=== PATIENT | female | born 1995 | race Caucasian/White ===

== ENCOUNTER 2018-04-15 15:47 | Outpatient (CLI) | payer MEDICAID ==
[2018-04-15 16:21] LABS: AMORPHOUS SEDIMENT,URINE TRACE /HPF; APPEARANCE,URINE TURBID; BILIRUBIN,URINE NEGATIVE (NEGATIVE); COLOR,URINE AMBER; GLUCOSE, URINE NEGATIVE (NEGATIVE); KETONES,URINE NEGATIVE (NEGATIVE); LEUKOCYTE ESTERASE,URINE MODERATE (NEGATIVE); NITRITE,URINE NEGATIVE (NEGATIVE); PROTEIN,URINE 30 mg/dL (NEGATIVE); URINE SPECIFIC GRAVITY 1.021
[2018-04-15 16:39] LABS: URINE AMPHETAMINES SCREEN NEGATIVE; URINE BARBITURATES SCREEN NEGATIVE; URINE BENZODIAZEPINES SCREEN NEGATIVE; URINE COCAINE SCREEN NEGATIVE; URINE MARIJUANA (THC) SCREEN NEGATIVE; URINE METHADONE SCREEN NEGATIVE; URINE PHENCYCLIDINE SCREEN NEGATIVE
[2018-04-15 16:44] LABS: UR PRO/CREAT RATIO RESULT 0.1 mg/mg (0.0-0.2); URINE PROTEIN 14.7 mg/dL (<12)
[2018-04-15] MEDS ORDERED: BUTALB/ACETAMINOPHEN/CAFFEINE 1 TAB EACH PO ONE (16:54)
[2018-04-15] MEDS ORDERED: BUTALB/ACETAMINOPHEN/CAFFEINE 1 TAB EACH PO PRN (16:54)
[2018-04-15] MEDS ORDERED: BUTALB/ACETAMINOPHEN/CAFFEINE 1 TAB EACH ONE (17:11)
[2018-04-15 17:36] LABS: ABSOLUTE BASOPHILS # (AUTO) 0.2 10^3/uL (0.0-0.2); ABSOLUTE EOSINOPHILS # (AUTO) 0.1 10^3/uL (0.0-0.6); ABSOLUTE LYMPHOCYTES (AUTO) 1.9 10^3/uL (0.5-4.7); ABSOLUTE MONOCYTES (AUTO) 1.1 10^3/uL (0.1-1.4); BASOPHILS % (AUTO) 1.4 % (0-2); EOSINOPHILS % (AUTO) 0.4 % (0-6); HEMATOCRIT 33.9 % (36.0-47.0); HEMOGLOBIN 11.4 g/dL (12.0-15.5); LYMPHOCYTES % (AUTO) 12.7 % (13-45); MEAN CORPUSCULAR HEMOGLOBIN 28.9 pg (27.0-33.4); MEAN CORPUSCULAR HGB CONC 33.6 g/dL (32.0-36.0); MEAN CORPUSCULAR VOLUME 86 fl (80-97); MONOCYTES % (AUTO) 7.2 % (3-13); PLATELET COUNT 223 10^3/uL (150-450); RED BLOOD COUNT 3.94 10^6/uL (3.72-5.28); RED CELL DISTRIBUTION WIDTH 13.8 % (11.5-14.0); SEGMENTED NEUTROPHILS % (AUTO) 78.3 % (42-78); TOTAL CELLS COUNTED % (AUTO) 100 %; WHITE BLOOD COUNT 15.3 10^3/uL (4.0-10.5)
[2018-04-15 18:00] LABS: ALANINE AMINOTRANSFERASE 27 U/L (9-52); ALBUMIN 3.6 g/dL (3.5-5.0); ALKALINE PHOSPHATASE 140 U/L (38-126); ANION GAP 12 (5-19); ASPARTATE AMINO TRANSFERASE 19 U/L (14-36); BILIRUBIN,DIRECT 0.3 mg/dL (0.0-0.4); BILIRUBIN,TOTAL 0.4 mg/dL (0.2-1.3); BLOOD UREA NITROGEN 9 mg/dL (7-20); CALCIUM 10.3 mg/dL (8.4-10.2); CARBON DIOXIDE 24 mmol/L (22-30); CHLORIDE 104 mmol/L (98-107); GLUCOSE 84 mg/dL (75-110); POTASSIUM 4.6 mmol/L (3.6-5.0); SODIUM 139.8 mmol/L (137-145); URIC ACID 4.1 mg/dL (2.5-6.2)
--- NOTE | 2018-04-15 20:40 | RADIOLOGY REPORT (SQ) ---
EXAM DESCRIPTION: VENOUS UNILATERAL LOWER COMPLETED DATE/TIME: 04/15/2018 8:30 pm REASON FOR STUDY: RLE EDEMA COMPARISON: None. TECHNIQUE: Dynamic and static poole scale and color images acquired of the right leg venous system. S elected spectral images acquired with additional compression and augmentation maneuvers. The contrala teral common femoral vein and saphenofemoral junction were also imaged. Images stored on PACS. LIMITATIONS: None. FINDINGS: COMMON FEMORAL: Normal phasicity, compression and augmentation. No visualized echogenic ma terial on poole scale. No defects on color images. FEMORAL: Normal compression and augmentation. No visualized echogenic material on poole scale. No defe cts on color images. POPLITEAL: Normal compression, augmentation. No visualized echogenic material on poole scale. No defec ts on color images. CALF VESSELS: Normal compression, augmentation. No visualized echogenic material on poole scale. No de fects on color images. GSV and SSV: Normal compression, augmentation. No visualized echogenic material on poole scale. No def ects on color images. ANY DEEP VENOUS INSUFFICIENCY: Not evaluated. ANY EVIDENCE OF POPLITEAL CYST: No. OTHER: No other significant finding. CONTRALATERAL COMMON FEMORAL VEIN AND SAPHENOFEMORAL JUNCTION: Normal phasicity, compression and augmentation. No visualized echogenic material on poole scale. No de fects on color images. IMPRESSION: NO EVIDENCE OF DVT OR SVT IN THE RIGHT LEG. TECHNICAL DOCUMENTATION: JOB ID: [id number] [email or web address] Rights Reserved Reading location - IP/workstation name: [email or web address]
--- NOTE | 2018-04-15 21:11 | Non Stress Test Report ---
Non Stress Test Datetime Report Generated by CPN: 04/15/2018 21:11 DEMOGRAPHIC Test Number: 1 EGA NST: 35.0 INDICATION Indication for Study: Other Indication for Study (NST) Other: LABOR CHECK VITAL SIGNS Temperature - NST: 98.1 Pulse - NST: 88 RESP - NST: 18 NBPSYS NST: 130 NBPDIA NST: 71 MONITORING Monitor Explained: Monitor Explained; Test Explained; Patient Verbalized Understanding Time on Monitor: 04/15/2018 16:09 Time off Monitor: 04/15/2018 19:49 NST Duration: 220 NST INTERVENTIONS NST Interventions: PO Hydration; Reposition Patient Physician Notified NST: dr rick BABY A: [id number] BABY A Movement : Present Contraction Frequency : IRREG FHR Baseline : 130 Accelerations : 15X15 Decelerations : None Variability : Moderate 6-25bpm NST Review: Meets Criteria for Reactive NST NST Review and Verified By : KP Linares NST Results: Reactive NST REPORT Report Trigger: Send Report
== END 2018-04-15 21:03 | disposition home or self-care (01) ==
LOC: LC 15:47
PROVIDERS: ATTEND Student in an Organized Health Care Education/Training Program
PROC: 4A1HXCZ Monitoring of Products of Conception, Cardiac Rate, External Approach (ICD-10-PCS; principal; 2018-04-15)
DX: O12.03 Gestational edema, third trimester (principal); Z3A.35 35 weeks gestation of pregnancy
CPT/HCPCS: 59025; 36415; 83615; 84156; 84550; 82570; 85025; 80053; 81001; 80307; 93971; J3490

== ENCOUNTER 2018-05-13 02:20 | Inpatient (IN) | payer MEDICAID ==
[2018-05-13] MEDS ORDERED: RINGERS SOLUTION,LACTATED 1,000 ML IV ONE (02:36)
[2018-05-13] MEDS ORDERED: RINGERS SOLUTION,LACTATED 1,000 ML IV PRN (02:36)
[2018-05-13 03:08] LABS: ABSOLUTE BASOPHILS # (AUTO) 0.1 10^3/uL (0.0-0.2); ABSOLUTE EOSINOPHILS # (AUTO) 0.1 10^3/uL (0.0-0.6); ABSOLUTE LYMPHOCYTES (AUTO) 2.8 10^3/uL (0.5-4.7); ABSOLUTE MONOCYTES (AUTO) 0.9 10^3/uL (0.1-1.4); ABSOLUTE NEUT (AUTO) 11.5 10^3/uL (1.7-8.2); BASOPHILS % (AUTO) 0.9 % (0-2); EOSINOPHILS % (AUTO) 0.8 % (0-6); HEMATOCRIT 33.2 % (36.0-47.0); HEMOGLOBIN 10.9 g/dL (12.0-15.5); LYMPHOCYTES % (AUTO) 18.1 % (13-45); MEAN CORPUSCULAR HEMOGLOBIN 27.5 pg (27.0-33.4); MEAN CORPUSCULAR VOLUME 83 fl (80-97); PLATELET COUNT 191 10^3/uL (150-450); RED BLOOD COUNT 3.99 10^6/uL (3.72-5.28); RED CELL DISTRIBUTION WIDTH 14.1 % (11.5-14.0); SEGMENTED NEUTROPHILS % (AUTO) 74.2 % (42-78); TOTAL CELLS COUNTED % (AUTO) 100 %; WHITE BLOOD COUNT 15.6 10^3/uL (4.0-10.5)
[2018-05-13] MEDS ORDERED: MISOPROSTOL 0.1 MG TABLET PO ONE ×2 (03:39→04:30)
[2018-05-13 04:11] LABS: APPEARANCE,URINE CLOUDY; BILIRUBIN,URINE NEGATIVE (NEGATIVE); COLOR,URINE STRAW; GLUCOSE, URINE NEGATIVE (NEGATIVE); KETONES,URINE NEGATIVE (NEGATIVE); URINE SPECIFIC GRAVITY 1.007
[2018-05-13 04:12] LABS: LEUKOCYTE ESTERASE,URINE TRACE (NEGATIVE); NITRITE,URINE NEGATIVE (NEGATIVE); PROTEIN,URINE 100 mg/dL (NEGATIVE); UROBILINOGEN,URINE NEGATIVE mg/dL (<2.0)
[2018-05-13] MEDS ORDERED: MISOPROSTOL 0.1 MG TABLET ONE (04:25)
[2018-05-13 04:36] LABS: URINE AMPHETAMINES SCREEN NEGATIVE; URINE BARBITURATES SCREEN NEGATIVE; URINE BENZODIAZEPINES SCREEN NEGATIVE; URINE COCAINE SCREEN NEGATIVE; URINE MARIJUANA (THC) SCREEN NEGATIVE; URINE METHADONE SCREEN NEGATIVE
[2018-05-13 04:41] LABS: URINE PHENCYCLIDINE SCREEN NEGATIVE
[2018-05-13] MEDS ORDERED: OXYTOCIN 10 UNIT/ML VIAL ONE (10:04)
[2018-05-13] MEDS ORDERED: MISOPROSTOL 0.2 MG TABLET ONE (10:04)
[2018-05-13] MEDS ORDERED: LIDOCAINE 1% INJ-PF (10 MG/ML) 30 ML SDV ONE (10:04)
[2018-05-13] MEDS ORDERED: OXYTOCIN/NORMAL SALINE 20 UNIT/1,000 ML RTUINJ ONE (10:05)
--- NOTE | 2018-05-13 11:21 | L&D Progress Notes ---
PROGRESS NOTES Datetime Report Generated by CPN: 05/13/2018 11:20 PROGRESS NOTE Impression: Reassuring Heart Rate Plan: Continue Present Management; Induction Vital Signs : Reviewed Comment: Irregular uc's, mod variability, occas variable VAGINAL EXAM Dilatation: 1 Effacement: 50 Station: -3 MEMBRANES Pooling: Positive Membranes: Ruptured Amniotic Fluid Color: Clear FETUS A Monitoring: External US Decelerations: Variable : 39.0 Estimated Weight (gm): 3500 Presentation: Vertex SIGNATURE SIGNATURE: ,[id number];,[id number] SIGNATURE: ,[id number];,[id number] SIGNATURE: ,[id number] SIGNATURE: [id number] Assignment: Lyn Wood MD Signature: with User ID: [email or web address] : with User ID: [email or web address]
[2018-05-13] MEDS ORDERED: PHENYLEPHRINE HCL INJ/PF 10 MG/1 ML SDV ONE (12:09)
[2018-05-13] MEDS ORDERED: FENTANYL CITRATE INJ/PF 100 MCG/2 ML AMPUL ONE (12:09)
[2018-05-13] MEDS ORDERED: EPHEDRINE SULFATE INJ 50 MG/1 ML AMPULE ONE ×2 (12:10)
[2018-05-13] MEDS ORDERED: FENTANYL/BUPIVACAINE/NS/PF 300 MCG/150 ML RTUINJ EPI ONE (12:11)
--- NOTE | 2018-05-13 12:19 | L&D Progress Notes ---
PROGRESS NOTES Datetime Report Generated by CPN: 05/13/2018 12:19 PROGRESS NOTE Impression: Reassuring Heart Rate Plan: Continue Present Management Comment: screaming with epidural, in process of receiving epidural, moderate variability, early and variable decelerations, uc's q 2-3 min, stron FETUS C SIGNATURE: [id number];[id number];[id number] Assignment: Lyn Wood MD Signature: with User ID: [email or web address] : with User ID: [email or web address]
[2018-05-13] MEDS ORDERED: PSEUDOEPHEDRINE HCL 30 MG TABLET PO PRN (13:53)
[2018-05-13] MEDS ORDERED: DIPHENHYDRAMINE HCL 25 MG CAPSULE PO PRN (13:53)
[2018-05-13] MEDS ORDERED: PROMETHAZINE HCL 25 MG SUPP.RECT PR PRN (13:53)
[2018-05-13] MEDS ORDERED: ACETAMINOPHEN WITH CODEINE #3 TABLET PO PRN ×2 (13:53)
[2018-05-13] MEDS ORDERED: DIBUCAINE 1% OINTMENT 28 GM TP PRN (13:53)
[2018-05-13] MEDS ORDERED: NA PHOS,M-B/NA PHOS,DI-BA (ADULT) 133 ML ENEMA PR PRN (13:53)
[2018-05-13] MEDS ORDERED: GLYCERIN/WITCH HAZEL LEAF 1 EACH MED..PAD TP PRN (13:53)
[2018-05-13] MEDS ORDERED: OXYTOCIN/NORMAL SALINE 20 UNIT/1,000 ML RTUINJ IV PRN (13:53)
[2018-05-13] MEDS ORDERED: ACETAMINOPHEN 650 MG SUPP.RECT PR PRN (13:53)
[2018-05-13] MEDS ORDERED: MEASLES,MUMPS&RUBELLA VACC/PF 0.5 ML VIAL SUBCUT PRN (13:53)
[2018-05-13] MEDS ORDERED: DIPH/PERTUSS(ACELL)/TETANUS VAC/PF 0.5 ML SYR (>=10YO) IM PRN (13:53)
[2018-05-13] MEDS ORDERED: MAGNESIUM HYDROXIDE SUSP 30 ML UDCUP PO PRN (13:53)
[2018-05-13] MEDS ORDERED: BENZOCAINE/MENTHOL AEROSOL SPRAY 56 ML TOP PRN (13:53)
[2018-05-13] MEDS ORDERED: PROMETHAZINE HCL INJ 25 MG/1 ML VIAL IV PRN (13:53)
[2018-05-13] MEDS ORDERED: PROMETHAZINE HCL 25 MG TABLET PO PRN (13:53)
--- NOTE | 2018-05-13 15:11 | Warning Signs in Babies ---
VOD Warning Signs Datetime Report Generated by [facility]: 05/13/2018 15:11 VOD#608 -Warning Signs in Babies: Viewed with Parent(s)/Family (04/15/2018 16:23:Paul Estes RN)
[2018-05-13] MEDS: IBUPROFEN 800 MG TABLET PO SCH ×2 (17:19→22:34)
[2018-05-13] MEDS: DOCUSATE SODIUM 100 MG CAPSULE PO SCH (18:28)
[2018-05-13] MEDS: FERROUS SULFATE 325 MG TABLET PO SCH (18:28)
[2018-05-13] MEDS: FAMOTIDINE 20 MG TABLET PO SCH (22:34)
[2018-05-14] MEDS: IBUPROFEN 800 MG TABLET PO SCH ×3 (06:47→22:18)
[2018-05-14 07:08] LABS: HEMATOCRIT 28.4 % (36.0-47.0); HEMOGLOBIN 9.6 g/dL (12.0-15.5); MEAN CORPUSCULAR HEMOGLOBIN 28.2 pg (27.0-33.4); MEAN CORPUSCULAR HGB CONC 33.8 g/dL (32.0-36.0); MEAN CORPUSCULAR VOLUME 84 fl (80-97); PLATELET COUNT 136 10^3/uL (150-450); RED CELL DISTRIBUTION WIDTH 14.2 % (11.5-14.0); WHITE BLOOD COUNT 14.1 10^3/uL (4.0-10.5)
[2018-05-14] MEDS: FERROUS SULFATE 325 MG TABLET PO SCH ×2 (09:44→18:31)
[2018-05-14] MEDS: SENNOSIDES/DOCUSATE 8.6-50 MG 1 EACH TABLET PO SCH (09:44)
[2018-05-14] MEDS: FAMOTIDINE 20 MG TABLET PO SCH ×2 (09:44→22:18)
[2018-05-14] MEDS: PRENATAL VITAMIN W DHA CAPSULE PO SCH (09:44)
[2018-05-14] MEDS: DOCUSATE SODIUM 100 MG CAPSULE PO SCH ×2 (09:44→18:36)
[2018-05-14] MEDS ORDERED: RINGERS SOLUTION,LACTATED 1,000 ML IV PRN (11:34)
[2018-05-14] MEDS ORDERED: OXYTOCIN/NORMAL SALINE 20 UNIT/1,000 ML RTUINJ IV PRN (11:34)
[2018-05-14] MEDS ORDERED: RINGERS SOLUTION,LACTATED 300 ML IV ONE (11:34)
--- NOTE | 2018-05-14 11:52 | PDOC PROGRESS REPORT ---
Subjective-OB Progress Note for:: 05/14/18 Subjective: 22yo G1 now P1 s/p ppd1. Ambulating, voiding and without difficulty. Denies concerns at this time. Physical Exam (OB) Vital Signs: Temp Pulse Resp BP Pulse Ox 98.1 F 86 16 131/64 H 99 05/14/18 08:07 05/14/18 08:07 05/14/18 08:07 05/14/18 08:07 05/14/18 08:07 Intake & Output 05/13/18 05/14/18 05/15/18 06:59 06:59 06:59 Intake Total 600 Balance 600 Weight 82.7 kg - General General Appearance: Appears well In distress: None - PIH/Pre-Eclampsia Headache: Absent Epigastric Pain: No Visual Changes: No - Episiotomy/Laceration Site Condition: Well Approximated - Lochia Lochia Amount: Small 10-25 ml Lochia Color: Rubra/Red - Abdomen Description: Soft, Round Hernia Present: No Fundal Description: Firm, Midline Fundal Height: u/u - u/2 - Respiratory Respiratory Status: No respiratory distress - Extremities Upper extremity: Normal inspection Lower extremities: Normal inspection - Neurological Cognition: Normal Orientation: AAOx4 - Psychological Associated symptoms: Normal affect, Normal mood Objective-Diagnostic Laboratory: 05/14/18 06:40 05/14/18 06:40 WBC 14.1 H RBC 3.40 L Hgb 9.6 L Hct 28.4 L MCV 84 MCH 28.2 MCHC 33.8 RDW 14.2 H Plt Count 136 L Assessment and Plan(PN) - Assessment and Plan (1) Acute blood loss anemia Is this a current diagnosis for this admission?: Yes Plan: increase dietary iron and feso4 BID (2) Anemia complicating , third trimester Is this a current diagnosis for this admission?: Yes Plan: increase dietary iron and feso4 BID (3) Labial abrasion, delivered, current hospitalization Is this a current diagnosis for this admission?: Yes Plan: routine pp care. Monitor for s/s of infection (4) Normal vaginal delivery Is this a current diagnosis for this admission?: Yes Plan: routine pp care - Time Spent with Patient Time with patient: Less than 15 minutes Medications reviewed and adjusted accordingly: Yes - Disposition Anticipated Discharge: Home Within: within 24 hours
[2018-05-15] MEDS: IBUPROFEN 800 MG TABLET PO SCH ×2 (06:57→14:34)
[2018-05-15 07:48] VITALS: BP 135/67
--- NOTE | 2018-05-15 08:44 | PDOC PROGRESS REPORT ---
Subjective-OB Progress Note for:: 05/15/18 Subjective: Ready for discharge. Physical Exam (OB) Vital Signs: Temp Pulse Resp BP Pulse Ox 98.1 F 80 12 135/67 H 99 05/15/18 07:35 05/15/18 07:35 05/15/18 07:35 05/15/18 07:35 05/15/18 07:35 Intake & Output 05/14/18 05/15/18 05/16/18 06:59 06:59 06:59 Intake Total 600 400 Balance 600 400 - PIH/Pre-Eclampsia DTR's: 1 + Clonus: Negative Headache: Absent Epigastric Pain: No Visual Changes: No - Lochia Lochia Amount: Scant < 10 ml Lochia Color: Rubra/Red - Abdomen Description: Tender, Soft Hernia Present: No Bowel Sounds: Normoactive Flatus Presence: Present Stool: Yes Fundal Description: Firm, Midline Fundal Height: u/u - u/2 Objective-Diagnostic Laboratory: 05/14/18 06:40 Assessment and Plan(PN) - Time Spent with Patient Medications reviewed and adjusted accordingly: Yes - Disposition Anticipated Discharge: Home
--- NOTE | 2018-05-15 08:53 | PDOC DISCHARGE SUMMARY ---
Final Diagnosis Discharge Date: 05/15/18 - Final Diagnosis (1) Acute blood loss anemia Is this a current diagnosis for this admission?: Yes (2) Anemia complicating , third trimester Is this a current diagnosis for this admission?: Yes (3) Labial abrasion, delivered, current hospitalization Is this a current diagnosis for this admission?: Yes (4) Normal vaginal delivery Is this a current diagnosis for this admission?: Yes (5) Premature rupture of membranes Is this a current diagnosis for this admission?: Yes Discharge Data - Discharge Medication Prescriptions: Ferrous Sulfate [Feosol 325 mg Tablet] 325 mg PO BID #60 tablet Home Medications: Ferrous Sulfate [Feosol 325 mg Tablet] 325 mg PO BID #60 tablet 05/15/18 Gestational Age: 39 wks Reason(s) for Admission: PROM Procedures: Ultrasound Intrapartum Procedure(s): Spontaneous Vaginal Delivery Complication(s): Laceration-Perineal - Data Baby 1 Male at 1 minute: 8 at 5 minutes: 9 Weight: 3.033 kg Home with Mother: Yes Complications: No - Diagnosis Test Laboratory: Temp Pulse Resp BP Pulse Ox 98.1 F 80 12 135/67 H 99 05/15/18 07:35 05/15/18 07:35 05/15/18 07:35 05/15/18 07:35 05/15/18 07:35 05/13/18 05/13/18 05/14/18 02:45 02:51 06:40 RBC 3.99 3.40 L Hgb 10.9 L 9.6 L Hct 33.2 L 28.4 L Urine Opiates Screen NEGATIVE - Discharge information/Instructions Discharge Activity: Activity As Tolerated, Balance Activity w/Rest, Pelvic Rest , Slowly Increase Activity, No tub bath Discharge Diet: Regular Disposition: HOME, SELF-CARE Follow up with: [facility] in: 4, Weeks
[2018-05-15] MEDS ORDERED: MEASLES,MUMPS&RUBELLA VACC/PF 0.5 ML VIAL SUBCUT PRN (09:30)
[2018-05-15] MEDS ORDERED: PROMETHAZINE HCL INJ 25 MG/1 ML VIAL IV PRN (09:30)
[2018-05-15] MEDS ORDERED: DIPH/PERTUSS(ACELL)/TETANUS VAC/PF 0.5 ML SYR (>=10YO) IM PRN (09:30)
[2018-05-15] MEDS: PRENATAL VITAMIN W DHA CAPSULE PO SCH (10:01)
[2018-05-15] MEDS: FAMOTIDINE 20 MG TABLET PO SCH (10:02)
[2018-05-15] MEDS: FERROUS SULFATE 325 MG TABLET PO SCH (10:02)
[2018-05-15] MEDS: DOCUSATE SODIUM 100 MG CAPSULE PO SCH (10:02)
[2018-05-15] MEDS: SENNOSIDES/DOCUSATE 8.6-50 MG 1 EACH TABLET PO SCH (10:02)
--- NOTE | 2018-05-20 16:28 | Delivery Summary ---
Del Sum A-C Datetime Report Generated by CPN: 05/20/2018 16:28 DELIVERY PERSONNEL DELIVERY PERSONNEL: [id number] Delivery Doctor:: Lianne Collins CNM Labor and Delivery Nurse:: Paul Estes RN Nursery Nurse:: Casandra Kumar RN Nursery Nurse:: Amber Taylor RN Hand Twister/CLINICAL APPEALS RN: Celina Kowalski, CLINICAL APPEALS RN II MATERNAL INFORMATION Delivery Anesthesia: Epidural Medications After Delivery: Pitocin Bolus-Please Comment Meds After Delivery Comment: 20units in 1000ML NS Maternal Complications: None Provider Comments: Spont delivery of viable male from OA to JOSE LUIS over intact perineum, rt periurethral abrasion, no sutures needed. Spont del of grossly nl intact placenta, 3 VC, FFFM, baby and mom remains in recovery in stable condition (Annotations: Data stored by N on behalf of user) LABOR SUMMARY EDC: 05/20/2018 00:00 No. Babies in Womb: 1 Attempted: No Labor Anesthesia: Epidural LABOR INFORMATION Onset of Labor: 05/13/2018 09:45 Complete Dilatation: 05/13/2018 13:15 Cervical Ripening Agents: Cytotec @ Oxytocin: Augmentation Group B Beta Strep: negative Antibiotics # of Doses: 0 Antibiotics Time of Last Dose: N/A Name of Antibiotic Given: N/A Steroids Given: None Reason Steroids Not Administered: Not Applicable MEMBRANES Membranes Rupture Method: Spontaneous Rupture of Membranes: 05/13/2018 01:30 Length of Rupture (hr): 12.08 Amniotic Fluid Color: Clear Amniotic Fluid Amount: Small Amniotic Fluid Odor: Normal STAGES OF LABOR Stage 1 hr: 3 Stage 1 min: 30 Stage 2 hr: 0 Stage 2 min: 20 Stage 3 hr: 0 Stage 3 min: 4 Total Time in Labor hr: 3 Total Time in Labor min: 54 VAGINAL DELIVERY Episiotomy: None Laceration #1: Perineal Laceration Extension #1: N/A Laceration Repair: Not Applicable Laceration Repair: Not Applicable Sponge Count Correct: N/A Sponge Count Correct: N/A CSECTION DELIVERY Primary Indication: N/A Secondary Indication: N/A CSection Incidence: N/A Labor: N/A Elective: N/A CSection Incision: N/A BABY A INFORMATION Infant Delivery Date/Time: 05/13/2018 13:35 Method of Delivery: Vaginal Born in Route : No : N/A Forceps: N/A Vacuum Extraction: N/A Shoulder Dystocia : No PRESENTATION/POSITION BABY A Presentation: Cephalic Presentation: Unable to Assess Cephalic Presentation: Vertex Vertex Position: Right Occipital Anterior Breech Presentation: N/A PLACENTA INFORMATION BABY A Placenta Delivery Time : 05/13/2018 13:39 Placenta Method of Delivery: Spontaneous Placenta Status: Delivered SCORES BABY A Heart Rate 1 min: >100 bpm Resp Effort 1 min: Good Cry Reflex Irritability 1 min: Cough or Sneeze or Pulls Away Muscle Tone 1 min: Active Motion Color 1 min: Blue/Pale Resuscitation Effort 1 min: N/A SCORE 1 MIN: 8 Heart Rate 5 min: >100 bpm Resp Effort 5 min: Good Cry Reflex Irritability 5 min: Cough or Sneeze or Pulls Away Muscle Tone 5 min: Active Motion Color 5 min: Body [place], Extremities Blue SCORE 5 MIN: 9 INFORMATION BABY A Gestational Age at Delivery: 39.0 Gestational Status: Full Term- 39- 40.6 Weeks Outcome : Liveborn Condition : Stable Infant Sex: Male IDENTIFICATION BABY A Verification Date/Time: 05/13/2018 14:15 ID Band Number: [id number] Mother's Name Verified: Yes Infant RN Verifying Infant: Francis Estes RN Additional Verifying Personnel: RTisha Kumar RN WEIGHT/LENGTH BABY A Birthweight (gm): 3040 Infant Weight (lb): 6 Weight (oz): 11 Length (in): 19.50 Length (cm): 49.53 CORD INFORMATION BABY A No. Cord Vessels: 3 Nuchal Cord : N/A Cord Blood Taken: Yes-For Storage (Mom's Blood type +) Suction: None ASSESSMENT BABY A Infant Complications: None Physical Findings at Delivery: Within Normal Limits Physical Findings- Other: See full nursery assessment Infant Respirations: Appears Normal Skin to Skin: Yes Skin to Skin Time (min): 60 Graphic Design Assistant/ALS Called : No Infant Care By: Lee Kumar RN Transferred To: Remains with Mother
== END 2018-05-15 17:30 | disposition home or self-care (01) | DRG 775 ==
LOC: LC 02:20 → LR 02:31 → 2S 16:18
PROVIDERS: ADMIT Obstetrics & Gynecology; ATTEND Obstetrics & Gynecology
PROC: 10E0XZZ Delivery of Products of Conception, External Approach (ICD-10-PCS; principal; 2018-05-13)
DX: O99.334 Smoking (tobacco) complicating childbirth (principal); F17.210 Nicotine dependence, cigarettes, uncomplicated; Z3A.39 39 weeks gestation of pregnancy; Z37.0 Single live birth
CPT/HCPCS: 36415; 80307; 81005; 85025; 85027; 86592; 86850; 86900; 86901; 94760; J2370; J2590; J3010; J3490

== ENCOUNTER 2019-01-06 13:28 | Emergency (ER) | payer SELFPAY ==
--- NOTE | 2019-01-06 14:03 | ER Document Report ---
HPI - HPI Time Seen by Provider: 01/06/19 13:47 Pain Level: 2 Context: Patient is a 23-year-old female who presents emergency department with a chief complaint of an insect bite to her right medial anterior thigh. She states that she felt a bug bite her last night. She has not taken any Benadryl or any medications to help with the pain. The patient did notice some bruising to the area and states that the pain radiates down her leg. Denies any fever, redness, or any other symptoms at this time. - CONSTITUTIONAL Constitutional: DENIES: Fever, Chills - EENT EENT: DENIES: Sore Throat, Ear Pain - NEURO Neurology: DENIES: Headache - CARDIOVASCULAR Cardiovascular: DENIES: Chest pain - RESPIRATORY Respiratory: DENIES: Trouble Breathing, Coughing - GASTROINTESTINAL Gastrointestinal: DENIES: Abdominal Pain, Nausea, Patient vomiting, Diarrhea - REPRODUCTIVE Reproductive: DENIES: : - MUSCULOSKELETAL Musculoskeletal: REPORTS: Extremity pain - Right anterior medial thigh. DENIES: Back Pain, Neck Pain, Swelling - DERM Skin Problems: Bruise - Right anterior medial thigh Past Medical History - General Information source: Patient - Social History Smoking Status: Current Every Day Smoker Family History: Reviewed & Not Pertinent Vertical Provider Document - CONSTITUTIONAL Agree With Documented VS: Yes Exam Limitations: No Limitations General Appearance: No Apparent Distress - INFECTION CONTROL TRAVEL OUTSIDE OF THE [place] IN LAST 30 DAYS: No - HEENT HEENT: Atraumatic, Normocephalic, PERRLA - NECK Neck: Normal Inspection - RESPIRATORY Respiratory: Breath Sounds Normal, No Respiratory Distress - CARDIOVASCULAR Cardiovascular: Regular Rate, Regular Rhythm Pulses: Normal: Radial - MUSCULOSKELETAL/EXTREMETIES Musculoskeletal/Extremeties: FROM, Tender - Anterior medial thigh, No Edema, Eccymosis - Anterior medial thigh about 2 cm - NEURO Level of Consciousness: Awake, Alert, Appropriate Motor/Sensory: No Motor Deficit, No Sensory Deficit - DERM Integumentary: Warm, Dry, No Rash Course - Re-evaluation Re-evalutation: 01/06/19 Patient does have bruising to the area in which she states that she was bit by a bug. I do not appreciate any erythema at this time. There is some ecchymosis to the area. I do not suspect patient has any life-threatening etiology at this time. I do not appreciate any cellulitis on them. She will receive a dose of Benadryl here in the emergency department. I also have advised her that she needs to continue to take Benadryl to help with any inflammation or itchiness. I have also advised her to take ibuprofen and Tylenol for her pain. She is in agreement with this plan. She will follow-up with her primary care provider in regards to this visit. I do not suspect the patient has a tick bite, as there is no bull's-eye rash noted. Verbal discharge instructions were given to the lizabeth velez. They verbalized understanding. They are stable for discharge. Discharge - Discharge Clinical Impression: Insect bite Qualifiers: Encounter type: initial encounter Site of insect bite: thigh Laterality: right Qualified Code(s): S70.361A - Insect bite (nonvenomous), right thigh, initial encounter Condition: Stable Disposition: HOME, SELF-CARE Additional Instructions: You were seen today in the emergency department for an insect bite to your right thigh. You can take Benadryl 50 mg every 6 hours for itchiness or swelling. You can also take Tylenol 1000 mg or ibuprofen 600 mg every 6 hours for your pain. If you see redness that starts to spread, please return to the emergency department. Prescriptions: Diphenhydramine HCl [Benadryl] 50 mg PO Q6HP PRN #30 capsule PRN Reason:
[2019-01-06] MEDS ORDERED: DIPHENHYDRAMINE HCL 50 MG CAPSULE PO ONE (14:04)
[2019-01-06 14:08] VITALS: BP 115/61
== END 2019-01-06 14:22 | disposition home or self-care (01) ==
LOC: ER 13:28
DX: S70.361A Insect bite (nonvenomous), right thigh, initial encounter (principal); W57.XXXA Bitten or stung by nonvenomous insect and other nonvenomous arthropods, initial encounter; F17.200 Nicotine dependence, unspecified, uncomplicated
CPT/HCPCS: 99281

== ENCOUNTER 2019-04-06 17:06 | Emergency (ER) | payer SELFPAY ==
--- NOTE | 2019-04-06 18:34 | ER Document Report ---
HPI - HPI Time Seen by Provider: 04/06/19 18:21 Pain Level: 2 Notes: Patient is an otherwise healthy 23-year-old female presenting to the emergency department with chief complaint of sore throat and fever. Patient reports she has had a sore throat for 2 days after switching to "cheap cigarettes from expensive ones". She also reports she had a fever 2 days ago but she is not sure what her fever was as she did not take her temperature. She currently denies any acute symptoms but states that since she was here with her son as the patient she figured she would check and to be seen as well. She denies any current fevers, nausea, vomiting, diarrhea, dysuria, cough congestion or sore throat. - CONSTITUTIONAL Constitutional: DENIES: Fever, Chills - EENT EENT: REPORTS: Sore Throat - NEURO Neurology: REPORTS: Headache - REPRODUCTIVE Reproductive: DENIES: : Past Medical History - General Information source: Patient - Social History Smoking Status: Current Every Day Smoker Frequency of alcohol use: None Drug Abuse: None Family History: Reviewed & Not Pertinent Patient has suicidal ideation: No Patient has homicidal ideation: No - Medical History Medical History: Negative Renal/ Medical History: Denies: Hx Peritoneal Dialysis Past Surgical History: Reports: Hx Appendectomy - Immunizations Immunizations up to date: Yes Vertical Provider Document - CONSTITUTIONAL Notes: PHYSICAL EXAMINATION: GENERAL: Well-appearing, well-nourished and in no acute distress. HEAD: Atraumatic, normocephalic. EYES: Pupils equal round and reactive to light, extraocular movements intact, conjunctiva are normal. ENT: Nares patent, oropharynx clear without exudates. Moist mucous membranes. NECK: Normal range of motion, supple without lymphadenopathy LUNGS: Breath sounds clear to auscultation bilaterally and equal. No wheezes rales or rhonchi. HEART: Regular rate and rhythm without murmurs ABDOMEN: Soft, nontender, nondistended abdomen. No guarding, no rebound. No masses appreciated. Female : deferred Musculoskeletal: Normal range of motion, no pitting or edema. No cyanosis. NEUROLOGICAL: Cranial nerves grossly intact. Normal speech, normal gait. Normal sensory, motor exams PSYCH: Normal mood, normal affect. SKIN: Warm, Dry, normal turgor, no rashes or lesions noted. - INFECTION CONTROL TRAVEL OUTSIDE OF THE [place] IN LAST 30 DAYS: No Course - Re-evaluation Re-evalutation: Patient appears well, nontoxic and her vital signs are within normal limits. A rapid strep was collected and is negative. Patient will be discharged home in stable condition. - Vital Signs Vital signs: Temp Pulse Resp BP Pulse Ox 98.1 F 78 18 110/96 H 96 04/06/19 17:33 04/06/19 17:33 04/06/19 17:33 04/06/19 17:33 04/06/19 17:33 Discharge - Discharge Clinical Impression: Sore throat Condition: Stable Disposition: HOME, SELF-CARE Additional Instructions: SORE THROAT: Sore throats may be caused by viruses, bacteria, or fungi. Most are due to a virus, and must get better on their own. Bacterial sore throats, particularly those due to "strep," need treatment with antibiotics. If an antibiotic is prescribed, be sure to take the medication for a full 10 days. Failure to take the antibiotic can result in complications such as rheumatic fever. Sometimes, an injection of antibiotics is given instead of pills or liquid. This single "shot" is equal in effectiveness to the oral medication. To relieve symptoms, take acetaminophen for pain. Sip clear liquids frequently, or eat popsicles or ice chips. Anesthetic sprays or lozenges may help. Make sure the air in the room is not too dry. Avoid using decongestants or antihistamines. Call the doctor if there is no improvement in two days, or if you have difficulty breathing, increasing throat pain, high fever, rash, or frequent vomiting. FOLLOW-UP CARE: If you have been referred to a physician for follow-up care, call the physicians office for an appointment as you were instructed or within the next two days. If you experience worsening or a significant change in your symptoms, notify the physician immediately or return to the Emergency Department at any time for re-evaluation.
[2019-04-06 18:35] VITALS: BP 101/63
== END 2019-04-06 19:20 | disposition home or self-care (01) ==
LOC: ER 17:06
DX: J02.9 Acute pharyngitis, unspecified (principal); R50.9 Fever, unspecified; F17.200 Nicotine dependence, unspecified, uncomplicated
CPT/HCPCS: 87070; 87880; 99283